=== PATIENT | female | born 1985 | race Two or more races ===

== ENCOUNTER 2024-09-06 12:06 | Emergency (ER) | payer MEDICAID, SELFPAY ==
[2024-09-06 12:07] VITALS: BMI 27.4
[2024-09-06 12:11] VITALS: BP 231/160; PULSE 117; RESP 18; TEMP 37; O2SAT 97
--- NOTE | 2024-09-06 12:11 | PC.NURSE ---
Pt BIB [facility]. Pt is agitated and refusing to be treated for hypertension.
--- NOTE | 2024-09-06 12:12 | PC.NURSE ---
Pt was cited out by [facility] deputy and walked out the ambulance by immediately after.
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
== END 2024-09-06 12:18 | disposition left against medical advice (07) ==
LOC: SERX 12:35
PROVIDERS: Emergency Provider Emergency Medicine
DX: R03.0 Elevated blood-pressure reading, without diagnosis of hypertension (principal); Z53.29 Procedure and treatment not carried out because of patient's decision for other reasons
CPT/HCPCS: 99281

== ENCOUNTER 2024-09-28 21:39 | Emergency (ER) | payer MEDICAID, SELFPAY ==
[2024-09-28 21:42] VITALS: BMI 29.9
[2024-09-28 22:19] VITALS: BP 201/111; PULSE 98; RESP 18; TEMP 36.6; O2SAT 98
[2024-09-28 22:29] VITALS: BP 208/138; PULSE 91
[2024-09-28] MEDS: hydrALAZINE HCL 25 MG TABLET PO (22:29)
[2024-09-28] MEDS: CLINDAMYCIN 150 MG CAPSULE 300 MG PO (22:29)
[2024-09-28] MEDS: ACETAMINOPHEN 500 MG TABLET 1000 MG PO (22:37)
--- NOTE | 2024-09-28 22:40 | PD.EDHEAD ---
ED Head Injury RME/HPI General Chief complaint: Extremity Injury, Lower Stated complaint: RT FOOT PAIN Time Seen by Provider: 09/28/24 22:22 Arrival date/time: 09/28/24 21:39 38F with no significant PMH Prese Related Data Previous Rx's ?Medication ?Instructions ?Recorded lisinopril 10 mg tablet 10 mg PO QDAY #90 tabs 01/23/23 clindamycin HCl 300 mg capsule 300 mg PO TID #21 caps 12/20/23 clindamycin HCl 300 mg capsule 300 mg PO TID #21 caps 12/23/23 clindamycin HCl 300 mg capsule 300 mg PO TID #21 caps 05/04/24 ibuprofen 800 mg tablet 800 mg PO TID PRN pain #30 tabs 05/04/24 nifedipine 60 mg tablet,extended 60 mg PO QDAY #30 tabs 05/04/24 release 24 hr (Procardia XL) clindamycin HCl 300 mg capsule 600 mg (2 x 300 mg) PO BID 10 days 09/28/24 #40 caps Allergies Allergy/AdvReac Type Severity Reaction Status Date / Time No Known Allergies Allergy Verified 09/28/24 21:45 Course Orders Category Date Time Status Acetaminophen Tab [Tylenol ES Tab] Med 09/28/24 22:34 Discontinued 1,000 mg PO X1 ONE Clindamycin [Cleocin] Med 09/28/24 22:23 Discontinued 300 mg PO X1 ONE hydrALAZINE HCL [Apresoline] Med 09/28/24 22:23 Discontinued 25 mg PO X1 ONE Vital Signs Vital signs: Vital Signs Temperature 98 F 09/28/24 22:19 Pulse Rate 98 09/28/24 22:19 Respiratory Rate 18 09/28/24 22:19 Blood Pressure 201/111 H 09/28/24 22:19 Pulse Oximetry (%) 98 09/28/24 22:19 Oxygen Delivery Method Room Air 09/28/24 22:19 Head Injury Medications / Prescriptions Medication administrations:: Medication Administration History Discontinued Medications Acetaminophen (Acetaminophen 500 Mg Tablet) 1,000 mg PO X1 ONE Stop: 09/28/24 22:35 Last Admin: 09/28/24 22:37 Dose: 1,000 mg Documented By: KG Clindamycin HCl (Clindamycin 150 Mg Capsule) 300 mg PO X1 ONE Stop: 09/28/24 22:24 Last Admin: 09/28/24 22:29 Dose: 300 mg Documented By: CHLOE Hydralazine HCl (Hydralazine Hcl 25 Mg Tablet) 25 mg PO X1 ONE Stop: 09/28/24 22:24 Last Admin: 09/28/24 22:29 Dose: 25 mg Documented By: CHLOE Discharge Plan Plan Patient Disposition: HOME (Self Care) Disposition Comment: Stable Prescriptions/Referrals Prescriptions/Med Rec: New clindamycin HCl 300 mg capsule 600 mg PO BID 10 Days Qty: 40 0RF No Action clindamycin HCl 300 mg capsule 300 mg PO TID Qty: 21 0RF clindamycin HCl 300 mg capsule 300 mg PO TID Qty: 21 0RF clindamycin HCl 300 mg capsule 300 mg PO TID Qty: 21 0RF ibuprofen 800 mg tablet 800 mg PO TID PRN (Reason: pain) Qty: 30 0RF nifedipine [Procardia XL] 60 mg tablet extended release 24hr 60 mg PO QDAY Qty: 30 0RF lisinopril 10 mg tablet 10 mg PO QDAY Qty: 90 0RF Problem List Clinical Impression: Hypertension, Cellulitis Patient/Caregiver Discharge Instructions Additional Instructions: Please follow-up with PCP within 24-48 hours and return immediately if symptoms worsen. Print Language: Nepali Stand Alone Forms: Patient Portal Info Letter HUSAM/BONITA Supervising Physician HUSAM/BONITA Supervising Physician: Dr. Ramirez
[2024-09-28 22:44] VITALS: BP 208/138; PULSE 91; RESP 18; O2SAT 95
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
== END 2024-09-28 22:40 | disposition home or self-care (01) ==
LOC: SERX 22:27
PROVIDERS: Emergency Provider Emergency Medicine; PCP Family Medicine
DX: L03.115 Cellulitis of right lower limb (principal); I10 Essential (primary) hypertension
CPT/HCPCS: 99282; A9270

== ENCOUNTER 2024-09-29 02:55 | Emergency (ER) | payer MEDICAID, SELFPAY ==
[2024-09-29 02:56] VITALS: BMI 29.8
[2024-09-29 03:04] VITALS: BP 201/137; PULSE 94; RESP 19; TEMP 36.6; O2SAT 100
--- NOTE | 2024-09-29 03:05 | XR_ITS ---
Examination: Foot, right, 3 views Technique: AP, oblique, lateral views foot, 3 views Date and time of exam: September 29, 2024 0309 hrs. Indications: Nonhealing foot wounds redness swelling and pain beginning one month ago. Findings: Mild osteopenia No fracture No cortical bone destruction No opaque foreign body There is soft tissue swelling dorsum of the foot Impression: No joseph cortical bone destruction
--- NOTE | 2024-09-29 03:05 | XR_ITS ---
EXAMINATION: Ankle, right 3 views . Technique: Ankle AP, oblique, lateral 3 views Date and time of exam: September 29, 2024 0309 hrs. Indications: Right ankle redness swelling and pain beginning one month ago, nonhealing wounds Findings: Soft tissue lateral malleolar swelling No fracture No cortical bone destruction Soft tissue defect adjacent to the distal shaft of the fibula on the oblique view Impression: No cortical bone destruction noted Consider MRI ankle without contrast follow-up
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
[2024-09-29 04:06] LABS: Basophils # (Auto) 0.1 Thou/mm3 (0.0-0.2); Basophils % (Auto) 0 % (0-2.5); Eosinophils # (Auto) 0.2 Thou/mm3 (0.0-0.5); Eosinophils % (Auto) 1 % (0-10); Hematocrit 38.1 % (36.0-46.0); Hemoglobin 12.6 g/dL (12.0-16.0); Immature Granulocytes % (Auto) 0 % (0-0); Immature Granulocytes Auto 0.04 Thou/mm3 (0.00-0.00); Lymphocytes % (Auto) 17 % (10-50); Mean Corpuscular HGB Conc 33.1 g/dl (31.0-37.0); Mean Corpuscular Hemoglobin 29.8 pg (25.0-35.0); Mean Corpuscular Volume 90 fL (80-100); Monocytes # (Auto) 0.7 Thou/mm3 (0.0-0.8); Monocytes % (Auto) 6 % (0-12); Neutrophils # (Auto) 8.7 Thou/mm3 (1.8-7.7); Neutrophils % (Auto) 75 % (37-80); Nucleated Red Blood Cell % 0 /100 WBC (0); Platelet Count 191 Thou/mm3 (140-440); RDW Standard Deviation 43.5 fL (36.4-46.3); Red Blood Count 4.23 Miln/mm3 (4.00-5.20); White Blood Count 11.6 Thou/mm3 (3.6-11.0)
[2024-09-29 04:19] LABS: Alanine Aminotransferase 12 U/L (10-49); Albumin, Serum 4.5 gm/dL (3.5-5.0); Albumin/Globulin Ratio 1.6 (1.2-2.2); Alkaline Phosphatase 123 U/L (46-116); Anion Gap 7 (7-16); Aspartate Amino Transferase 18 U/L (0-34); BUN/Creatinine Ratio 19 Ratio (12-20); Bilirubin,Total 0.8 mg/dL (0.3-1.2); Blood Urea Nitrogen 15 mg/dL (9-23); C-Reactive Protein 2.2 mg/dL (0.0-0.9); Calcium 9.7 mg/dL (8.3-10.6); Calcium (Corrected) 9.7 mg/dL (8.5-10.1); Carbon Dioxide 27.5 mMol/L (20.0-31.0); Chloride 101 mMol/L (98-107); Creatinine (Component) 0.8 mg/dL (0.6-1.3); Estimated Creatinine Clearance 104.1 mL/min (>60); Globulin 2.9 gm/dL (2.3-3.5); Glucose 94 mg/dL (74-106); Osmolality,Calculated 270 (275-295); Potassium 3.7 mMol/L (3.4-5.1); Sodium 135 mMol/L (136-145); Total Protein 7.4 gm/dL (5.7-8.2); eGFR > 60 See Note
[2024-09-29 04:57] LABS: Sed Rate (ESR) 54 mm/hr (0-20)
[2024-09-29] MEDS: KETOROLAC INJ 60 MG/2 ML VIAL IM (05:26)
[2024-09-29 07:05] VITALS: BP 208/143; BP 215/150; PULSE 85; RESP 16; TEMP 36.7; O2SAT 100
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
[2024-09-29] MEDS: ACETAMINOPHEN 325 MG TABLET 650 MG PO (07:44)
[2024-09-29] MEDS: HYDROcodone/APAP 10/325 TAB PO (07:44)
== END 2024-09-29 08:00 | disposition home or self-care (01) ==
PROVIDERS: Physician Assistant; Emergency Provider Emergency Medicine; PCP Family Medicine
DX: L03.115 Cellulitis of right lower limb (principal); I10 Essential (primary) hypertension; Z59.00 Homelessness unspecified
CPT/HCPCS: 36415; 73610; 73630; 80053; 85025; 85652; 86140; 96372; 99283; J1885; A9270

== ENCOUNTER 2024-10-03 00:12 | Emergency (ER) | payer MEDICAID, SELFPAY ==
[2024-10-03 00:18] VITALS: BP 206/141; PULSE 109; RESP 18; TEMP 36.7; O2SAT 98
[2024-10-03 00:44] VITALS: PULSE 110; RESP 20; O2SAT 97
--- NOTE | 2024-10-03 01:47 | EDNOTE_ITS ---
<Statement entered by Nadia Rosales MD - 10/03/24 05:44> As co-signing physician, I was present and available for consult prn. I concur with the plan and care as documented by the midlevel provider. ED Skin Abcess FB-RME/HPI General Chief complaint: Skin/Abscess/Foreign Body Stated complaint: rt foot swelling Time Seen by Provider: 10/03/24 01:36 Arrival date/time: 10/03/24 00:12 38F with history of HTN and meth use presents to ED with RLE pain and swelling. Patient has been here multiples times for this. Patient's last visit several days ago had benign bloodwork and XR. Patient is back today because when she pulled her sock off, part of the scab on one of the wounds got caught and ripped, which is why patient has worsening pain. Limitations: no limitations Related Data Previous Rx's ?Medication ?Instructions ?Recorded lisinopril 10 mg tablet 10 mg PO QDAY #90 tabs 01/23/23 clindamycin HCl 300 mg capsule 300 mg PO TID #21 caps 12/20/23 clindamycin HCl 300 mg capsule 300 mg PO TID #21 caps 12/23/23 clindamycin HCl 300 mg capsule 300 mg PO TID #21 caps 05/04/24 ibuprofen 800 mg tablet 800 mg PO TID PRN pain #30 tabs 05/04/24 nifedipine 60 mg tablet,extended 60 mg PO QDAY #30 tabs 05/04/24 release 24 hr (Procardia XL) clindamycin HCl 300 mg capsule 600 mg (2 x 300 mg) PO BID 10 days 09/28/24 #40 caps acetaminophen 500 mg tablet 1,000 mg (2 x 500 mg) PO Q6H PRN 09/29/24 pain #30 tabs ibuprofen 600 mg tablet 600 mg PO Q6H PRN pain #30 tabs 09/29/24 Allergies Allergy/AdvReac Type Severity Reaction Status Date / Time No Known Allergies Allergy Verified 09/29/24 02:58 Review of Systems Review of Systems Systems Reviewed: All systems reviewed, normal except as documented Constitutional Constitutional: Reports system reviewed and no additional complaints, except as documented, Denies fever(s) and Denies headache(s) ENT Ears, Nose, Mouth, and Throat: Denies disequilibrium and Denies headache(s) Cardiovascular Cardiovascular: Reports system reviewed and no additional complaints, except as documented, Denies chest pain and Denies dyspnea Respiratory Respiratory: Reports system reviewed and no additional complaints, except as documented, Denies cough and Denies dyspnea Gastrointestinal Gastrointestinal: Reports system reviewed and no additional complaints, except as documented, Denies abdominal pain, Denies nausea and Denies vomiting Integumentary/Breasts Skin/Breast: Reports as per HPI and Reports skin pain Neurologic Neurologic: Reports system reviewed and no additional complaints, except as documented, Denies confusion, Denies disequilibrium and Denies headache(s) Psychiatric Psychiatric: Denies confusion Past Medical History Past Medical History CARDIAC: Positive Cardiac Disorders and Hypertension; Negative Congestive Heart Failure RESPIRATORY: Negative Chronic Obstructive Pulmonary Disease (COPD) GENITOURINARY: Negative Renal Disease ENDOCRINE: Negative Diabetes Mellitus Type 1 or Diabetes Mellitus Type 2 Social History SMOKING STATUS: Former smoker ED Exam General Limitations: Present no limitations General appearance: Present alert and in no apparent distress Head Head exam: Present atraumatic Eye Eye exam: Present normal appearance, PERRL and EOMI ENT ENT exam: Present normal exam, normal oropharynx and mucous membranes moist Neck Neck exam: Present normal inspection, full ROM and trachea midline Chest Chest inspection: Present normal inspection and symmetric chest wall rise Respiratory Respiratory exam: Present normal lung sounds bilaterally Cardiovascular Cardiovascular exam: Present regular rate, normal rhythm and normal heart sounds Abdominal Exam Abdominal exam: Present soft and normal bowel sounds Extremities Exam Extremities exam: Present full ROM Expanded Lower Extremity Exam Ankle exam: Present full ROM (R), tenderness and swelling Back Exam Back exam: Present normal inspection and full ROM Neurological Exam Neurological exam: Present alert, oriented X3 and CN II-XII intact Psychiatric Psychiatric exam: Present normal affect and normal mood Skin Skin exam: Present warm, dry, intact and normal color Course Quality Measures none Orders Category Date Time Status Dexamethasone Inj [Decadron Inj] Med 10/03/24 01:37 Discontinued 10 mg PO X1 ONE HYDROcodone*/APAP 5/325 [[place] 5/325] Med 10/03/24 01:37 Discontinued 1 tab PO X1 ONE Vital Signs Vital signs: Vital Signs Temperature 98.1 F 10/03/24 00:18 Pulse Rate 109 H 10/03/24 00:18 Respiratory Rate 18 10/03/24 00:18 Blood Pressure 206/141 H 10/03/24 00:18 Pulse Oximetry (%) 98 10/03/24 00:18 Oxygen Delivery Method Room Air 10/03/24 00:18 O2 at 98% on RA and WNLs Skin / Abscess / Foreign Body MDM Narrative MDM Narrative:: 38F with history of HTN and meth use presents to ED with RLE pain and swelling. Patient has been here multiples times for this. Patient's last visit several days ago had benign bloodwork and XR. Patient is back today because when she pulled her sock off, part of the scab on one of the wounds got caught and ripped, which is why patient has worsening pain. Physical exam reveals some R posterior ankle swelling, redness, and tenderness with healing scab hunter; improved from last visit as there was an open wet wound. Patient is afebrile, calm and alert. Wound cleaned and rebandaged. Counseled to finish ABX. BP noted to be elevated, but it always is. Counseled to see PCP about HTN control. Patient data External records reviewed:: [facility] previous records Clinical information provided by:: patient Social determinants that could affect healthcare access:: substance use Patient has the following chronic illnesses:: HTN and drug use How is presenting disease/condition affected by chronic disease/condition?: caused by Evaluation data The following diagnostics were reviewed and interpreted by me:: other (specify) (none) Lab and/or radiology exams considered but not ordered:: not ordered Interpretation Summary: n/a Medications / Prescriptions Medications or Prescriptions considered but not ordered:: ordered Medication administrations:: Medication Administration History Discontinued Medications Hydrocodone Bitart/Acetaminophen (Hydrocodone/Apap 5/325 Tablet) 1 tab PO X1 ONE Stop: 10/03/24 01:38 Dexamethasone Sodium Phosphate (Dexamethasone Sod Phos Inj 10 Mg/Ml Vial) 10 mg PO X1 ONE Stop: 10/03/24 01:38 above Consultations Consultation(s) initiated? (list below): No Diagnosis Skin/Abscess Differential Diagnosis: abscess of skin or subcutaneous tissue, viral exanthem, dermatophytosis, urticaria, herpes zoster, allergic reaction to drug, cellulitis, eczema, insect bites, impetigo and contact dermatitis Most likely diagnosis given after review of the tests above:: cellulitis Admission Indicated Admission indicated?: not indicated Admission Request Was there a request for admission?: No Disposition Plan Disposition Plan: Discharge Discharge Attestation Discharge Attestation: The patient and all family members were given an opportunity to ask questions and understood the discharge instructions. Discharge instructions specifically effects, indications for sooner follow up or return to the emergency department, and the expected course of current diagnosis. Patient condition: Stable Discharge Plan Plan Patient Disposition: HOME (Self Care) Disposition Comment: Stable Prescriptions/Referrals Prescriptions/Med Rec: No Action clindamycin HCl 300 mg capsule 300 mg PO TID Qty: 21 0RF clindamycin HCl 300 mg capsule 300 mg PO TID Qty: 21 0RF clindamycin HCl 300 mg capsule 300 mg PO TID Qty: 21 0RF ibuprofen 800 mg tablet 800 mg PO TID PRN (Reason: pain) Qty: 30 0RF nifedipine [Procardia XL] 60 mg tablet extended release 24hr 60 mg PO QDAY Qty: 30 0RF ibuprofen 600 mg tablet 600 mg PO Q6H PRN (Reason: pain) Qty: 30 0RF acetaminophen 500 mg tablet 1,000 mg PO Q6H PRN (Reason: pain) Qty: 30 0RF lisinopril 10 mg tablet 10 mg PO QDAY Qty: 90 0RF clindamycin HCl 300 mg capsule 600 mg PO BID 10 Days Qty: 40 0RF Problem List Clinical Impression: Cellulitis Patient/Caregiver Discharge Instructions Additional Instructions: Please follow-up with PCP within 24-48 hours and return immediately if symptoms worsen. Finish ABX. Print Language: Thai Stand Alone Forms: Patient Portal Info Letter HUSAM/BONITA Supervising Physician HUSAM/BONITA Supervising Physician: Dr. Rosales
[2024-10-03] MEDS: HYDROcodone/APAP 5/325 TABLET 1 TAB PO (02:14)
[2024-10-03] MEDS: DEXAMETHASONE SOD PHOS INJ 10 MG/ML VIAL PO (02:15)
[2024-10-03 02:16] VITALS: BP 198/101; PULSE 99; RESP 19; TEMP 37.2
== END 2024-10-03 02:16 | disposition home or self-care (01) ==
LOC: SERX 04:20
PROVIDERS: Emergency Provider Emergency Medicine; PCP Family Medicine
DX: L03.115 Cellulitis of right lower limb (principal)
CPT/HCPCS: 99283; J1100; A9270

== ENCOUNTER 2024-10-16 20:58 | Emergency (ER) | payer MEDICAID, SELFPAY ==
[2024-10-16 20:58] VITALS: BMI 29.7
[2024-10-16 21:06] VITALS: BP 189/130; PULSE 89; RESP 17; TEMP 37; O2SAT 98
--- NOTE | 2024-10-16 21:31 | EDNOTE_ITS ---
ED Skin Abcess FB-RME/HPI General Chief complaint: Ankle/Foot Injury Stated complaint: RIGHT ANKLE PAIN Time Seen by Provider: 10/16/24 21:20 Arrival date/time: 10/16/24 20:58 38F with history of HTN and meth use presents to ED with RLE pain and swelling. Patient has been here multiples times for this. Patient's recent visit had benign blood work and XR. Patient is back because she states she finished her clindamycin ABX and the swelling is back. Limitations: no limitations Related Data Previous Rx's ?Medication ?Instructions ?Recorded lisinopril 10 mg tablet 10 mg PO QDAY #90 tabs 01/23/23 clindamycin HCl 300 mg capsule 300 mg PO TID #21 caps 12/20/23 clindamycin HCl 300 mg capsule 300 mg PO TID #21 caps 12/23/23 clindamycin HCl 300 mg capsule 300 mg PO TID #21 caps 05/04/24 ibuprofen 800 mg tablet 800 mg PO TID PRN pain #30 tabs 05/04/24 nifedipine 60 mg tablet,extended 60 mg PO QDAY #30 tabs 05/04/24 release 24 hr (Procardia XL) acetaminophen 500 mg tablet 1,000 mg (2 x 500 mg) PO Q6H PRN 09/29/24 pain #30 tabs ibuprofen 600 mg tablet 600 mg PO Q6H PRN pain #30 tabs 09/29/24 doxycycline hyclate 100 mg tablet 100 mg PO BID 14 days #28 tabs 10/16/24 Allergies Allergy/AdvReac Type Severity Reaction Status Date / Time No Known Allergies Allergy Verified 09/29/24 02:58 Review of Systems Review of Systems Systems Reviewed: All systems reviewed, normal except as documented Constitutional Constitutional: Reports system reviewed and no additional complaints, except as documented, Denies fever(s) and Denies headache(s) ENT Ears, Nose, Mouth, and Throat: Denies disequilibrium and Denies headache(s) Cardiovascular Cardiovascular: Reports system reviewed and no additional complaints, except as documented, Denies chest pain and Denies dyspnea Respiratory Respiratory: Reports system reviewed and no additional complaints, except as documented, Denies cough and Denies dyspnea Gastrointestinal Gastrointestinal: Reports system reviewed and no additional complaints, except as documented, Denies abdominal pain, Denies nausea and Denies vomiting Integumentary/Breasts Skin/Breast: Reports as per HPI and Reports skin pain Neurologic Neurologic: Reports system reviewed and no additional complaints, except as documented, Denies confusion, Denies disequilibrium and Denies headache(s) Psychiatric Psychiatric: Denies confusion Past Medical History Past Medical History CARDIAC: Positive Cardiac Disorders and Hypertension; Negative Congestive Heart Failure RESPIRATORY: Negative Chronic Obstructive Pulmonary Disease (COPD) GENITOURINARY: Negative Renal Disease ENDOCRINE: Negative Diabetes Mellitus Type 1 or Diabetes Mellitus Type 2 Social History SMOKING STATUS: Never smoker ED Exam General Limitations: Present no limitations General appearance: Present alert and in no apparent distress Head Head exam: Present atraumatic Eye Eye exam: Present normal appearance, PERRL and EOMI ENT ENT exam: Present normal exam, normal oropharynx and mucous membranes moist Neck Neck exam: Present normal inspection, full ROM and trachea midline Chest Chest inspection: Present normal inspection and symmetric chest wall rise Respiratory Respiratory exam: Present normal lung sounds bilaterally Cardiovascular Cardiovascular exam: Present regular rate, normal rhythm and normal heart sounds Abdominal Exam Abdominal exam: Present soft and normal bowel sounds Extremities Exam Extremities exam: Present full ROM Expanded Lower Extremity Exam Ankle exam: Present full ROM (R), swelling and other (R open wound but healing) Back Exam Back exam: Present normal inspection and full ROM Neurological Exam Neurological exam: Present alert, oriented X3 and CN II-XII intact Psychiatric Psychiatric exam: Present normal affect and normal mood Skin Skin exam: Present warm, dry, intact and normal color Course Quality Measures none Orders Category Date Time Status Wound Care NOW Care 10/16/24 21:23 Completed Doxycycline [Vibramycin] Med 10/16/24 21:27 Discontinued 100 mg PO X1 ONE Naproxen [Naprosyn] Med 10/16/24 21:21 Discontinued 500 mg PO X1 ONE Trimethoprim/Sulfa 160/800 Ds [Bactrim Ds] Med 10/16/24 21:21 Discontinued 1 tab PO X1 ONE Vital Signs Vital signs: Vital Signs Temperature 98.6 F 10/16/24 21:06 Pulse Rate 89 10/16/24 21:06 Respiratory Rate 17 10/16/24 21:06 Blood Pressure 189/130 H 10/16/24 21:06 Pulse Oximetry (%) 98 10/16/24 21:06 Oxygen Delivery Method Room Air 10/16/24 21:06 O2 at 98% on RA and WNLs Skin / Abscess / Foreign Body MDM Narrative MDM Narrative:: 38F with history of HTN and meth use presents to ED with RLE pain and swelling. Patient has been here multiples times for this. Patient's recent visit had benign blood work and XR. Patient is back because she states she finished her clindamycin ABX and the swelling is back. Physical exam reveals some R ankle swelling with healing scab hunter; improved from last visit as there was an open wet wound. Patient is afebrile, calm and alert. Wound cleaned and rebandaged. Will try different ABX. BP noted to be elevated, but it always is. Counseled to see PCP about HTN control. Patient data External records reviewed:: [facility] previous records Clinical information provided by:: patient Social determinants that could affect healthcare access:: substance use Patient has the following chronic illnesses:: drug use and HTN How is presenting disease/condition affected by chronic disease/condition?: exacerbated by Evaluation data The following diagnostics were reviewed and interpreted by me:: other (specify) (none) Lab and/or radiology exams considered but not ordered:: not ordered Interpretation Summary: n/a Medications / Prescriptions Medications or Prescriptions considered but not ordered:: ordered Medication administrations:: Medication Administration History Discontinued Medications Doxycycline Hyclate (Doxycycline 100 Mg Tablet) 100 mg PO X1 ONE Stop: 10/16/24 21:28 Last Admin: 10/16/24 21:39 Dose: 100 mg Documented By: Naproxen (Naproxen 250 Mg Tablet) 500 mg PO X1 ONE Stop: 10/16/24 21:22 Last Admin: 10/16/24 21:38 Dose: 500 mg Documented By: Trimethoprim/Sulfamethoxazole (Trimethoprim/Sulfa 160/800 Ds Tablet) 1 tab PO X1 ONE Stop: 10/16/24 21:22 Last Admin: 10/16/24 21:40 Dose: Not Given Documented By: Non-Admin Reason: Cancelled by Provider above Consultations Consultation(s) initiated? (list below): No Diagnosis Skin/Abscess Differential Diagnosis: abscess of skin or subcutaneous tissue, viral exanthem, dermatophytosis, urticaria, herpes zoster, allergic reaction to drug, cellulitis, eczema, insect bites, impetigo and contact dermatitis Most likely diagnosis given after review of the tests above:: cellulitis Admission Indicated Admission indicated?: not indicated Admission Request Was there a request for admission?: No Disposition Plan Disposition Plan: Discharge Discharge Attestation Discharge Attestation: The patient and all family members were given an opportunity to ask questions and understood the discharge instructions. Discharge instructions specifically effects, indications for sooner follow up or return to the emergency department, and the expected course of current diagnosis. Patient condition: Stable Discharge Plan Plan Patient Disposition: HOME (Self Care) Disposition Comment: Stable Prescriptions/Referrals Prescriptions/Med Rec: New doxycycline hyclate 100 mg tablet 100 mg PO BID 14 Days Qty: 28 0RF No Action clindamycin HCl 300 mg capsule 300 mg PO TID Qty: 21 0RF clindamycin HCl 300 mg capsule 300 mg PO TID Qty: 21 0RF clindamycin HCl 300 mg capsule 300 mg PO TID Qty: 21 0RF ibuprofen 800 mg tablet 800 mg PO TID PRN (Reason: pain) Qty: 30 0RF nifedipine [Procardia XL] 60 mg tablet extended release 24hr 60 mg PO QDAY Qty: 30 0RF ibuprofen 600 mg tablet 600 mg PO Q6H PRN (Reason: pain) Qty: 30 0RF acetaminophen 500 mg tablet 1,000 mg PO Q6H PRN (Reason: pain) Qty: 30 0RF lisinopril 10 mg tablet 10 mg PO QDAY Qty: 90 0RF Problem List Clinical Impression: Cellulitis Patient/Caregiver Discharge Instructions Education Materials: ED Cellulitis Additional Instructions: Please follow-up with PCP within 24-48 hours and return immediately if symptoms worsen. Can call [facility] . May need PCP referral. Print Language: Gabonese Stand Alone Forms: Patient Portal Info Letter HUSAM/BONITA Supervising Physician JEAN MARIE Supervising Physician: Dr. Ahn
[2024-10-16] MEDS: NAPROXEN 250 MG TABLET 500 MG PO (21:38)
[2024-10-16] MEDS: DOXYCYCLINE 100 MG TABLET PO (21:39)
== END 2024-10-16 23:11 | disposition home or self-care (01) ==
LOC: SERX 21:49
PROVIDERS: Emergency Provider Emergency Medicine
DX: L03.115 Cellulitis of right lower limb (principal); I10 Essential (primary) hypertension
CPT/HCPCS: 99282; A9270

== ENCOUNTER 2025-01-13 19:21 | Emergency (ER) | payer MEDICAID, SELFPAY ==
[2025-01-13 19:22] VITALS: BMI 33.2
[2025-01-13 19:57] VITALS: BP 168/98; PULSE 87; RESP 18; TEMP 36.4; O2SAT 96
--- NOTE | 2025-01-13 20:37 | PD.EDDENTL ---
ED Dental RME/HPI General Chief complaint: Dental/Oral/Throat Stated complaint: TOOTHACHE, LEFT EAR PAIN Time Seen by Provider: 01/13/25 19:24 Arrival date/time: 01/13/25 19:21 Limitations: no limitations RME / HPI RME / HPI Narrative: 39-year-old female presents with left lower tooth pain x 3 days. She describes it as sharp with radiation of pain to her left ear. Denies fever, chills, vomiting, rash, otorrhea, chest pain, shortness of breath. Patient has a known old fracture to one of her back left molars. She reports dental appointment next week. She reports she took 800 mg x 4 hours prior to arrival to ED of ibuprofen with minimal improvement in symptoms. Teeth map:  1. Fracture with dentin exposure. Duration: constant Exacerbating factors: chewing, cold and drinking fluids Context: history of dental caries Treatment prior to arrival: oral analgesic Related Data Previous Rx's ?Medication ?Instructions ?Recorded lisinopril 10 mg tablet 10 mg PO QDAY #90 tabs 01/23/23 clindamycin HCl 300 mg capsule 300 mg PO TID #21 caps 12/20/23 clindamycin HCl 300 mg capsule 300 mg PO TID #21 caps 12/23/23 clindamycin HCl 300 mg capsule 300 mg PO TID #21 caps 05/04/24 ibuprofen 800 mg tablet 800 mg PO TID PRN pain #30 tabs 05/04/24 nifedipine 60 mg tablet,extended 60 mg PO QDAY #30 tabs 05/04/24 release 24 hr (Procardia XL) acetaminophen 500 mg tablet 1,000 mg (2 x 500 mg) PO Q6H PRN 09/29/24 pain #30 tabs ibuprofen 600 mg tablet 600 mg PO Q6H PRN pain #30 tabs 09/29/24 amoxicillin 500 mg-potassium 1 tab PO BID dental infection 10 01/13/25 clavulanate 125 mg tablet days #20 tabs (Augmentin) lidocaine HCl 2 % mucosal solution 15 ml PO .PO dental pain #100 mL 01/13/25 (Lidocaine Viscous) Allergies Allergy/AdvReac Type Severity Reaction Status Date / Time No Known Allergies Allergy Verified 01/13/25 19:22 Review of Systems Constitutional Constitutional: Denies chills, Denies fever(s) and Denies headache(s) ENT Ears, Nose, Mouth, and Throat: Denies bleeding gums, Reports dental pain (Left lower molars.), Denies dysphagia, Denies ear discharge, Reports otalgia, Denies facial pain, Denies headache(s), Denies neck pain and Denies odynophagia Cardiovascular Cardiovascular: Denies chest pain and Denies dyspnea Respiratory Respiratory: Denies cough and Denies dyspnea Gastrointestinal Gastrointestinal: Denies dysphagia and Denies odynophagia Musculoskeletal Musculoskeletal: Denies back pain and Denies neck pain Integumentary/Breasts Skin/Breast: Denies rash Neurologic Neurologic: Denies headache(s) Past Medical History Past Medical History CARDIAC: Positive Cardiac Disorders and Hypertension; Negative Congestive Heart Failure RESPIRATORY: Negative Chronic Obstructive Pulmonary Disease (COPD) GENITOURINARY: Negative Renal Disease ENDOCRINE: Negative Diabetes Mellitus Type 1 or Diabetes Mellitus Type 2 Social History SMOKING STATUS: Never smoker ED Exam General Limitations: Present no limitations General appearance: Present alert and in distress Head Head exam: Present atraumatic Eye Eye exam: Present normal appearance and EOMI Expanded ENT Exam Teeth exam: Present dental caries, fractured tooth # (19), dental tenderness # (Left lower, diffuse.) and gingival swelling Throat exam: Present normal inspection; Absent tonsillar erythema, tonsillar exudate or muffled voice Neck Neck exam: Present normal inspection and full ROM; Absent tenderness or lymphadenopathy Chest Chest inspection: Present normal inspection and symmetric chest wall rise Respiratory Respiratory exam: Present normal lung sounds bilaterally; Absent respiratory distress, wheezes or stridor Cardiovascular Cardiovascular exam: Present regular rate and +S1 Abdominal Exam Abdominal exam: Present soft; Absent distention Extremities Exam Extremities exam: Present normal inspection and full ROM Back Exam Back exam: Present normal inspection and full ROM Neurological Exam Neurological exam: Present alert and normal gait Psychiatric Psychiatric exam: Present normal affect Skin Skin exam: Present warm and dry Course Quality Measures none Orders Category Date Time Status Amoxicillin/Pot Clav 875 [Augmentin 875] Med 01/13/25 20:12 Discontinued 1 tab PO X1 ONE HYDROcodone*/APAP 5/325 [[place] 5/325] Med 01/13/25 20:12 Discontinued 1 tab PO X1 ONE Lidocaine 2% Viscous [Xylocaine 2% Viscous] Med 01/13/25 20:12 Discontinued 15 ml PO X1 ONE Vital Signs Vital signs: Vital Signs Temperature 97.5 F 01/13/25 19:57 Pulse Rate 87 01/13/25 19:57 Respiratory Rate 18 01/13/25 19:57 Blood Pressure 168/98 H 01/13/25 19:57 Pulse Oximetry (%) 96 01/13/25 19:57 Oxygen Delivery Method Room Air 01/13/25 19:57 Pulse ox 96% on room air, within normal limits. Dental / Oral MDM Narrative MDM Narrative:: 39-year-old female presented with left lower molar pain for the last several days. Vital signs stable. Physical exam significant for fracture at base of tooth #19 with surrounding gingival erythema. Patient's pain was treated with viscous lidocaine and oral analgesics with some improvement in symptoms. Less concern for gingival abscess at this time, however we will start her on prophylactic antibiotic. Patient reports that she has an appointment to follow-up with dentist for definite management and will call to have appointment pushed up to tomorrow. Ultimately patient was discharged home with plan to follow-up with dentist tomorrow. Return precautions were provided. Patient was stable at time of discharge. Patient data External records reviewed:: [facility] previous records Clinical information provided by:: patient Social determinants that could affect healthcare access:: substance use Patient has the following chronic illnesses:: History of methamphetamine use. How is presenting disease/condition affected by chronic disease/condition?: exacerbated by Evaluation data The following diagnostics were reviewed and interpreted by me:: other (specify) Lab and/or radiology exams considered but not ordered:: Considered not ordered. Interpretation Summary: Considered not ordered. Medications / Prescriptions Medications or Prescriptions considered but not ordered:: Rx given. Medication administrations:: Medication Administration History Discontinued Medications Hydrocodone Bitart/Acetaminophen (Hydrocodone/Apap 5/325 Tablet) 1 tab PO X1 ONE Stop: 01/13/25 20:13 Last Admin: 01/13/25 21:16 Dose: 1 tab Documented By: JARRED Amoxicillin/Clavulanate Potassium (Amoxicillin/Pot Clav 875 Tablet) 1 tab PO X1 ONE Stop: 01/13/25 20:13 Last Admin: 01/13/25 21:16 Dose: 1 tab Documented By: JARRED Lidocaine HCl (Lidocaine Viscous 2% 15 Ml Udc) 15 ml PO X1 ONE Stop: 01/13/25 20:13 Last Admin: 01/13/25 21:17 Dose: 15 ml Documented By: JARRED Rx given. Consultations Consultation(s) initiated? (list below): No Diagnosis Dental Differential Diagnosis: gingival abscess, dental caries, toothache, dental abscess and fracture of tooth Most likely diagnosis given after review of the tests above:: Fracture of tooth. Admission Indicated Admission indicated?: not indicated Admission Request Was there a request for admission?: No Disposition Plan Disposition Plan: Discharge Discharge Attestation Discharge Attestation: The patient and all family members were given an opportunity to ask questions and understood the discharge instructions. Discharge instructions specifically effects, indications for sooner follow up or return to the emergency department, and the expected course of current diagnosis. Patient condition: Stable Discharge Plan Plan Patient Disposition: HOME (Self Care) Disposition Comment: stable Prescriptions/Referrals Prescriptions/Med Rec: New amoxicillin-pot clavulanate [Augmentin] 500-125 mg tablet 1 tab PO BID 10 Days Qty: 20 0RF lidocaine HCl [Lidocaine Viscous] 2 % solution 15 ml PO .PO Qty: 100 0RF No Action clindamycin HCl 300 mg capsule 300 mg PO TID Qty: 21 0RF clindamycin HCl 300 mg capsule 300 mg PO TID Qty: 21 0RF clindamycin HCl 300 mg capsule 300 mg PO TID Qty: 21 0RF ibuprofen 800 mg tablet 800 mg PO TID PRN (Reason: pain) Qty: 30 0RF nifedipine [Procardia XL] 60 mg tablet extended release 24hr 60 mg PO QDAY Qty: 30 0RF ibuprofen 600 mg tablet 600 mg PO Q6H PRN (Reason: pain) Qty: 30 0RF acetaminophen 500 mg tablet 1,000 mg PO Q6H PRN (Reason: pain) Qty: 30 0RF lisinopril 10 mg tablet 10 mg PO QDAY Qty: 90 0RF Problem List Clinical Impression: Tooth avulsion, Fracture of tooth Patient/Caregiver Discharge Instructions Other Activity Instructions:: Follow-up with dentist within the next 24 to 48 hours for further evaluation and treatment of dental fracture. Take Tylenol or ibuprofen as needed for pain every 6 hours. Take Augmentin twice daily for the next 10 days. Return to the ED if your symptoms worsen or change. Education Materials: ED Dental Trauma Print Language: Hungarian Stand Alone Forms: Reva Award Info., Patient Portal Info Letter PA/SPLUNK ARCHITECT Supervising Physician PA/SPLUNK ARCHITECT Supervising Physician: Dr. Ahn
[2025-01-13] MEDS: HYDROcodone/APAP 5/325 TABLET 1 TAB PO (21:16)
[2025-01-13] MEDS: AMOXICILLIN/POT CLAV 875 TABLET 1 TAB PO (21:16)
[2025-01-13] MEDS: LIDOCAINE VISCOUS 2% 15 ML UDC PO (21:17)
== END 2025-01-13 21:35 | disposition home or self-care (01) ==
LOC: SERX 21:02
PROVIDERS: Emergency Provider Emergency Medicine
DX: S03.2XXA Dislocation of tooth, initial encounter (principal); S02.5XXA Fracture of tooth (traumatic), initial encounter for closed fracture; X58.XXXA Exposure to other specified factors, initial encounter
CPT/HCPCS: 99283; J3490; A9270

== ENCOUNTER 2025-02-21 19:14 | Emergency (ER) | payer MEDICAID, SELFPAY ==
[2025-02-21] VITALS (9 sets, daily range): BP systolic 164–201; BP diastolic 100–130; PULSE 61–73; RESP 12–16; TEMP 36.7–36.9; O2SAT 98–100; BMI 33.0
--- NOTE | 2025-02-21 20:19 | PD.EDSOB ---
ED SOB =RME/HPI General Chief Complaint: Shortness of Breath/Dyspnea Stated Complaint: SOB Time Seen by Provider: 02/21/25 19:18 Arrival date/time: 02/21/25 19:14 RME / HPI RME / HPI Narrative: DR. ROSALES MAIN ED EVALUATION: 39 y/o female [place] Hx of Hypertension FABRICE presents to ED c/o nose bleed, shortness of breath, and tightening chest and arm pain x 1 day. Per EMS, patient's breathing improved s/p breathing treatment en route. Patient denies any drug use since September 2024. Admits she has not taken her Lisinopril and possible Amlodipine in approximately 2 weeks. Patient also denies cough, nausea, vomiting, diarrhea, constipation, extremity swelling or any other associated symptoms or aggravating factors. No modifying factors, no radiation, no migration. Related Data Previous Rx's ?Medication ?Instructions ?Recorded lisinopril 10 mg tablet 10 mg PO QDAY #90 tabs 01/23/23 clindamycin HCl 300 mg capsule 300 mg PO TID #21 caps 12/20/23 clindamycin HCl 300 mg capsule 300 mg PO TID #21 caps 12/23/23 clindamycin HCl 300 mg capsule 300 mg PO TID #21 caps 05/04/24 ibuprofen 800 mg tablet 800 mg PO TID PRN pain #30 tabs 05/04/24 nifedipine 60 mg tablet,extended 60 mg PO QDAY #30 tabs 05/04/24 release 24 hr (Procardia XL) acetaminophen 500 mg tablet 1,000 mg (2 x 500 mg) PO Q6H PRN 09/29/24 pain #30 tabs ibuprofen 600 mg tablet 600 mg PO Q6H PRN pain #30 tabs 09/29/24 lidocaine HCl 2 % mucosal solution 15 ml PO .PO dental pain #100 mL 01/13/25 (Lidocaine Viscous) lidocaine HCl 2 % mucosal solution See Rx Instructions .Route 01/14/25 (Lidocaine Viscous) .COMPLEX #60 mL lidocaine HCl 2 % mucosal solution See Rx Instructions .Route 01/15/25 (Lidocaine Viscous) .COMPLEX #100 mL Allergies Allergy/AdvReac Type Severity Reaction Status Date / Time No Known Allergies Allergy Verified 02/21/25 19:42 Review of Systems Review of Systems Systems Reviewed: All systems reviewed, normal except as documented Narrative Review of Systems: Gen: No fever, no chills, no weight loss EYES: No discharge, no visual changes, no pain HEENT: No ear pain, no congestion, no sore throat PULM: Positive shortness of breath, no cough, no congestion CV: Positive chest pain, no dyspnea on exertion, no palpitations GI: No nausea, no vomiting, no diarrhea, no pain, no constipation : No frequency, no urgency, no dysuria Musc/skel: No joint pain, no back pain, no swelling Skin: No rash. Psyc: No hallucinations, no depression Heme/Lymph: No easy bleeding or bruising tendencies Neuro: No weakness, no headache Past Medical History Past Medical History CARDIAC: Positive Cardiac Disorders and Hypertension ED Exam Narrative Physical exam: GENERAL APPEARANCE: alert and oriented x 4, well-developed, well-nourished, hyperventilating, appears agitated. VITALS: All vitals were reviewed and the pulse ox is 99% on room air, which is normal according to my interpretation. HEENT: Normocephalic, atraumatic; pupils equal, round, reactive to light; EOMI; mucous membranes pink, moist; oropharynx clear NECK: Supple LUNGS: CTABL; no wheezes, no rales, no rhonchi HEART: Regular rate, regular rhythm; normal S1, S2; no murmurs ABDOMEN: non distended; normal BS; soft, no tenderness, no guarding, no rebound; no masses, no organomegaly, no hernia PELVIC: No lesions, swelling, unusual discharge, or FB. BACK: no CVA tenderness EXTREMITIES: atraumatic; no edema NEUROLOGIC: awake; alert and oriented x4; cranial nerves II-XII grossly intact; no focal sensory or motor deficits PSYCHIATRIC: anxious. SKIN: warm, dry, normal color; no rashes Course Course Course Narrative: 1946: EKG ordered. 2036: Labs ordered. 2057: COVID-19 Antigen test ordered. 2224: UA and drug screen ordered. 2252: Bedside blood glucose ordered. 2257: Troponin I ordered. 2258: Toradol ordered. 3: Labs reviewed. HCG is negative. 3: Pelvic exam performed with school curriculum developer. Exam is unremarkable. Quality Measures none Orders Category Date Time Status Bedside Blood Glucose NOW Care 02/21/25 22:53 Completed Bedside COVID-19 Antigen Test NOW Care 02/21/25 20:58 Completed Bedside Influenza A&B Antigen Test NOW Care 02/21/25 20:58 Completed Training Development Manager NOW Care 02/21/25 20:18 Completed EKG (ED ONLY) *Do not use* NOW Care 02/21/25 19:47 Completed IV [Insert IV] NOW Care 02/21/25 20:15 Completed EKG (ED Only) Stat Exams 02/21/25 19:47 Ordered XR chest 1V portable Stat Exams 02/21/25 20:18 Completed Alcohol, Blood Medical Stat Lab 02/21/25 20:37 Completed B-Type Natriuretic Peptide Stat Lab 02/21/25 20:37 Completed CBC Stat Lab 02/21/25 20:37 Completed Comprehensive Metabolic Panel Stat Lab 02/21/25 20:37 Completed Drug Screen,Urine Stat Lab 02/21/25 22:25 Completed HCG,Qualitative Serum Stat Lab 02/22/25 01:06 Completed Lactic Acid [Lactate (Lactic Acid)] Stat Lab 02/22/25 01:06 Completed Lipase Stat Lab 02/21/25 20:37 Completed Magnesium Stat Lab 02/21/25 20:37 Completed Partial Thromboplastin Time Stat Lab 02/21/25 20:37 Completed Procalcitonin Stat Lab 02/22/25 01:06 Completed Prothrombin Time with INR Stat Lab 02/21/25 20:37 Completed TSH [Thyroid Stimulating Hormone] Stat Lab 02/22/25 02:13 Completed Troponin I Stat Lab 02/21/25 20:37 Completed Troponin I Stat Lab 02/21/25 23:00 Completed UA, C/S IF [Urinalysis, C/S if Indicated] Stat Lab 02/21/25 22:25 Completed Urine Culture Stat Lab 02/21/25 22:25 Received Aspirin Chew Med 02/21/25 20:18 Discontinued 324 mg PO X1 ONE HYDROcodone*/APAP 5/325 [[place] 5/325] Med 02/22/25 00:09 Discontinued 1 tab PO X1 ONE Ketorolac Inj [Toradol Inj] Med 02/21/25 22:58 Discontinued 15 mg IVP X1 ONE LORazepam [Ativan Inj] Med 02/22/25 01:04 Discontinued 2 mg IVP X1 ONE Labetalol IV [Trandate IV] Med 02/22/25 03:05 Discontinued 20 mg IVP X1 ONE Lisinopril [Prinivil] Med 02/22/25 04:29 Discontinued 20 mg PO X1 ONE Morphine Inj Med 02/21/25 20:58 Discontinued 5 mg IVP X1 ONE Morphine Inj Med 02/22/25 01:11 Discontinued 5 mg IVP X1 ONE NIFEdipine [Procardia] Med 02/22/25 04:27 Discontinued 10 mg PO X1 ONE Nitroglycerin [Nitrostat 1/150] Med 02/21/25 20:18 Discontinued 0.4 mg SL Q5MIN PRN Ondansetron Inj [Zofran Inj] Med 02/21/25 20:58 Discontinued 4 mg IV X1 ONE Ondansetron Inj [Zofran Inj] Med 02/22/25 01:11 Discontinued 4 mg IV X1 ONE Ringers Lactated 1000 ml [Lactated Ringers] 1,000 ml Med 02/22/25 02:15 Discontinued IV 999 mls/hr Sodium Chloride 0.9% 1000 ml [Ns] 1,000 ml Med 02/22/25 01:05 Discontinued IV 999 mls/hr hydrALAZINE INJ [Apresoline Inj] Med 02/21/25 20:51 Discontinued 10 mg IV X1 ONE hydrALAZINE INJ [Apresoline Inj] Med 02/22/25 00:06 Discontinued 10 mg IV X1 ONE Vital Signs Vital signs: Vital Signs Temperature 98.1 F 02/21/25 19:18 Pulse Rate 71 02/21/25 19:18 Respiratory Rate 12 02/21/25 19:18 Blood Pressure 201/107 H 02/21/25 19:18 Pulse Oximetry (%) 100 02/21/25 19:18 Oxygen Delivery Method Room Air 02/21/25 19:18 Shortness of Breath / Dyspnea [facility] Narrative MDM Narrative:: Scribe Attestation: Amarilys Wang am scribing for and in the presence of Dr. Rosales. Provider Notation: Although this document has been carefully reviewed, there may still be some phonetic and other typographical errors. These errors are purely grammatical due to imperfections in the software program and should not be construed in any way to compromise the substance of the patient's medical care during this visit. Patient data External records reviewed:: [facility] previous records (Prior ED records from 01/13/25 reviewed. Patient was last seen for fracture of tooth.) and EMS form Clinical information provided by:: patient and EMS Social determinants that could affect healthcare access:: none Patient has the following chronic illnesses:: Hypertension How is presenting disease/condition affected by chronic disease/condition?: exacerbated by Evaluation data The following diagnostics were reviewed and interpreted by me:: lab results, radiology exam(s) and EKG tracing(s) (EKG manual reading, my interpretation: sinus rhythm, rate: 66 bpm, Q-wave and T wave aversions in v II, no ST elevation, no acute ischemic changes, interpreted as normal.) Lab and/or radiology exams considered but not ordered:: None Interpretation Summary: RADIOLOGY CHEST X-RAY Chest x-ray is ordered for determining etiology of chest pain. I have personally reviewed the radiology data and agree with the radiologist's interpretation below: Patient: BENJI RICHARDS Record#: [id number] Birthdate: 1985 Age/Sex: 39 / F Location: [facility] Attending Dr: Ordering Physician: Nadia Rosales MD Date of Service: 02/21/25 Procedure(s): XR chest 1V portable Accession Number(s): [id number] cc: Gautam Goodwin MD; Cristiano Barney MD; Nadia Rosales MD~ Examination: AP chest single view TECHNIQUE: AP portable upright chest single view Exam date and time: February 21, 2025, 2107 hours Comparison April 22, 2021 INDICATIONS: Chest pain today. FINDINGS: Minor prominence left ventricle Suspicious for early pneumonia left base Intact osseous structures IMPRESSION: Suspicious for early pneumonia left base Dictated By: Cristiano Barney MD Signed By: <Electronically signed by Cristiano Barney MD in OV> 02/21/252118 Medications / Prescriptions Medications or Prescriptions considered but not ordered:: None Medication administrations:: Medication Administration History Discontinued Medications Hydrocodone Bitart/Acetaminophen (Hydrocodone/Apap 5/325 Tablet) 1 tab PO X1 ONE Stop: 02/22/25 00:10 Last Admin: 02/22/25 00:14 Dose: 1 tab Documented By: BD Aspirin (Aspirin 81 Mg Chew) 324 mg PO X1 ONE Stop: 02/21/25 20:19 Last Admin: 02/21/25 20:24 Dose: 324 mg Documented By: BD Hydralazine HCl (Hydralazine Inj 20 Mg/Ml Vial) 10 mg IV X1 ONE Stop: 02/21/25 20:52 Last Admin: 02/21/25 21:05 Dose: 10 mg Documented By: AC Hydralazine HCl (Hydralazine Inj 20 Mg/Ml Vial) 10 mg IV X1 ONE Stop: 02/22/25 00:07 Last Admin: 02/22/25 00:10 Dose: 10 mg Documented By: BD Sodium Chloride (Ns) 1,000 mls @ 999 mls/hr IV .Q1H1M ONE Stop: 02/22/25 02:05 Last Infusion: 02/22/25 02:25 Dose: Infused Documented By: Admin: 02/22/25 01:13 Dose: 999 mls/hr Documented By: BD Lactated Ringer's (Lactated Ringers) 1,000 mls @ 999 mls/hr IV .Q1H1M ONE Stop: 02/22/25 03:15 Last Infusion: 02/22/25 03:05 Dose: Infused Documented By: Admin: 02/22/25 02:25 Dose: 999 mls/hr Documented By: BD Ketorolac Tromethamine (Ketorolac Inj 30 Mg/Ml Vial) 15 mg IVP X1 ONE Stop: 02/21/25 22:59 Last Admin: 02/21/25 23:15 Dose: 15 mg Documented By: BD Labetalol HCl (Labetalol Inj 5 Mg/Ml Vial 20 Ml) 20 mg IVP X1 ONE Stop: 02/22/25 03:06 Last Admin: 02/22/25 03:08 Dose: 20 mg Documented By: BD Lisinopril (Lisinopril 20 Mg Tablet) 20 mg PO X1 ONE Stop: 02/22/25 04:30 Last Admin: 02/22/25 04:37 Dose: 20 mg Documented By: CB Lorazepam (Lorazepam 2 Mg/Ml Vial) 2 mg IVP X1 ONE Stop: 02/22/25 01:05 Last Admin: 02/22/25 02:15 Dose: 2 mg Documented By: BD Morphine Sulfate (Morphine Sulf Inj 10 Mg/Ml Vial) 5 mg IVP X1 ONE Stop: 02/21/25 20:59 Last Admin: 02/21/25 21:04 Dose: 5 mg Documented By: AC Morphine Sulfate (Morphine Sulf Inj 10 Mg/Ml Vial) 5 mg IVP X1 ONE Stop: 02/22/25 01:12 Last Admin: 02/22/25 01:20 Dose: 5 mg Documented By: BD Nifedipine (Nifedipine 10 Mg Capsule) 10 mg PO X1 ONE Stop: 02/22/25 04:28 Last Admin: 02/22/25 04:37 Dose: 10 mg Documented By: CB Nitroglycerin (Nitroglycerin 0.4 Mg Subl Btl #25) 0.4 mg SL Q5MIN PRN PRN Reason: CHEST PAIN Stop: 03/23/25 20:17 Last Admin: 02/21/25 20:47 Dose: 0.4 mg Documented By: Admin: 02/21/25 20:37 Dose: 0.4 mg Documented By: Admin: 02/21/25 20:28 Dose: 0.4 mg Documented By: BD Ondansetron HCl (Ondansetron Inj 2 Mg/Ml Inj 2 Ml) 4 mg IV X1 ONE Stop: 02/21/25 20:59 Last Admin: 02/21/25 21:05 Dose: 4 mg Documented By: AC Ondansetron HCl (Ondansetron Inj 2 Mg/Ml Inj 2 Ml) 4 mg IV X1 ONE Stop: 02/22/25 01:12 Last Admin: 02/22/25 01:19 Dose: 4 mg Documented By: BD See above if any Consultations Consultation(s) initiated? (list below): No Diagnosis Shortness of Breath Differential Diagnosis: other (ACS vs Viral syndrome vs PNA) Most likely diagnosis given after review of the tests above:: Generalized body aches, Hypertensive urgency Admission Indicated Admission indicated?: not indicated Admission Request Was there a request for admission?: No Disposition Plan Disposition Plan: Discharge Discharge Attestation Discharge Attestation: The patient and all family members were given an opportunity to ask questions and understood the discharge instructions. Discharge instructions specifically effects, indications for sooner follow up or return to the emergency department, and the expected course of current diagnosis. Patient condition: Stable Discharge Plan Plan Patient Disposition: HOME (Self Care) Prescriptions/Referrals Prescriptions/Med Rec: No Action clindamycin HCl 300 mg capsule 300 mg PO TID Qty: 21 0RF clindamycin HCl 300 mg capsule 300 mg PO TID Qty: 21 0RF clindamycin HCl 300 mg capsule 300 mg PO TID Qty: 21 0RF ibuprofen 800 mg tablet 800 mg PO TID PRN (Reason: pain) Qty: 30 0RF nifedipine [Procardia XL] 60 mg tablet extended release 24hr 60 mg PO QDAY Qty: 30 0RF ibuprofen 600 mg tablet 600 mg PO Q6H PRN (Reason: pain) Qty: 30 0RF acetaminophen 500 mg tablet 1,000 mg PO Q6H PRN (Reason: pain) Qty: 30 0RF lidocaine HCl [Lidocaine Viscous] 2 % solution 15 ml PO .PO Qty: 100 0RF lidocaine HCl [Lidocaine Viscous] 2 % solution See Rx Instructions .ROUTE .COMPLEX Qty: 60 0RF Rx Instructions: Apply topically as needed for pain. lidocaine HCl [Lidocaine Viscous] 2 % solution See Rx Instructions .ROUTE .COMPLEX Qty: 100 0RF Rx Instructions: Swish and swallow 5 mL every 4-6 hours as needed for mouth pain lisinopril 10 mg tablet 10 mg PO QDAY Qty: 90 0RF Referrals: Gautam Goodwin MD [Primary Care Provider] - In 1 week Problem List Clinical Impression: Generalized body aches, Hypertensive urgency Patient/Caregiver Discharge Instructions Education Materials: ED High Blood Pressure ... Print Language: Cook Islander Stand Alone Forms: Reva Award Info., Patient Portal Info Letter
[2025-02-21] MEDS: ASPIRIN 81 MG CHEW 324 MG PO (20:24)
[2025-02-21] MEDS: NITROGLYCERIN 0.4 MG SUBL BTL #25 SL ×3 (20:28→20:47)
[2025-02-21 20:48] LABS: Basophils # (Auto) 0.1 Thou/mm3 (0.0-0.2); Basophils % (Auto) 1 % (0-2.5); Eosinophils # (Auto) 0.1 Thou/mm3 (0.0-0.5); Eosinophils % (Auto) 1 % (0-10); Hemoglobin 13.4 g/dL (12.0-16.0); Immature Granulocytes % (Auto) 0 % (0-0); Immature Granulocytes Auto 0.06 Thou/mm3 (0.00-0.00); Lymphocytes # (Auto) 1.8 Thou/mm3 (1.0-4.8); Lymphocytes % (Auto) 12 % (10-50); Mean Corpuscular HGB Conc 34.4 g/dl (31.0-37.0); Mean Corpuscular Volume 90 fL (80-100); Monocytes # (Auto) 0.7 Thou/mm3 (0.0-0.8); Monocytes % (Auto) 5 % (0-12); Neutrophils # (Auto) 11.5 Thou/mm3 (1.8-7.7); Neutrophils % (Auto) 81 % (37-80); Nucleated Red Blood Cell % 0 /100 WBC (0); Platelet Count 204 Thou/mm3 (140-440); Red Blood Count 4.32 Miln/mm3 (4.00-5.20); White Blood Count 14.2 Thou/mm3 (3.6-11.0)
[2025-02-21] MEDS: MORPHINE SULF INJ 10 MG/ML VIAL 5 MG IVP (21:04)
[2025-02-21] MEDS: ONDANSETRON INJ 2 MG/ML INJ 2 ML 4 MG IV (21:05)
[2025-02-21] MEDS: hydrALAZINE INJ 20 MG/ML VIAL 10 MG IV (21:05)
[2025-02-21 21:07] LABS: Alanine Aminotransferase 10 U/L (10-49); Albumin, Serum 4.7 gm/dL (3.5-5.0); Albumin/Globulin Ratio 1.6 (1.2-2.2); Alcohol, Blood Medical < 3.0 mg/dL (0-10.0); Alkaline Phosphatase 87 U/L (46-116); Anion Gap 7 (7-16); Aspartate Amino Transferase 18 U/L (0-34); BUN/Creatinine Ratio 19 Ratio (12-20); Bilirubin,Total 0.9 mg/dL (0.3-1.2); Blood Urea Nitrogen 19 mg/dL (9-23); Calcium 9.4 mg/dL (8.3-10.6); Calcium (Corrected) 9.4 mg/dL (8.5-10.1); Carbon Dioxide 23.2 mMol/L (20.0-31.0); Chloride 106 mMol/L (98-107); Estimated Creatinine Clearance 86.8 mL/min (>60); Globulin 2.9 gm/dL (2.3-3.5); Glucose 105 mg/dL (74-106); Lipase 43 U/L (12-53); Magnesium 1.8 mg/dL (1.6-2.6); Osmolality,Calculated 274 (275-295); Potassium 3.7 mMol/L (3.4-5.1); Sodium 136 mMol/L (136-145); Total Protein 7.6 gm/dL (5.7-8.2); eGFR > 60 See Note
[2025-02-21 21:10] LABS: Troponin I 0.083 ng/mL (0.0-0.045)
[2025-02-21 21:15] LABS: B-Type Natriuretic Peptide 73 pg/mL (0-100)
[2025-02-21 21:24] LABS: Partial Thromboplastin Time 26.9 Seconds (22.0-36.0)
[2025-02-21 22:32] LABS: Collection Type, Urine Clean Catch
[2025-02-21 23:07] LABS: Bilirubin,Urine Negative (Negative); Blood,Urine 3+ (Negative); Clarity,Urine Turbid (Clear/Hazy); Color,Urine Brown (Lt Yel-Yel); Glucose, Urine Negative (Negative); Ketones,Urine Trace (Negative); Leukocyte Esterase,Urine Positive (Negative); Nitrite,Urine Negative (Negative); PH,Urine 5.5 (5.0-7.0); Protein,Urine 1+ (Neg - Trace); RBC,Urine 2412 /hpf (0-3); Specific Gravity,Urine 1.034 (1.001-1.035); Squamous Epithelial Cell,Urine 10 /hpf (0-5); Urobilinogen,Urine Negative mg/dL (0.0-1.0); WBC,Urine 110 /hpf (0-5)
[2025-02-21 23:08] LABS: Culture Indicated,Urine Yes
[2025-02-21] MEDS: KETOROLAC INJ 30 MG/ML VIAL 15 MG IVP (23:15)
[2025-02-21 23:54] LABS: Amphetamine/Methamp Scrn,U Negative (Negative); Barbiturate Screen,Urine Negative (Negative); Benzodiazepines Screen,Urine Negative (Negative); Benzoylecgonine Screen, Ur Negative (Negative); Fentanyl Screen,Urine Negative (Negative); Opiate Screen,Urine Positive (Negative); THC Screen,Urine Negative (Negative)
[2025-02-22] VITALS (7 sets, daily range): BP systolic 171–216; BP diastolic 111–124; PULSE 65–83; RESP 16–25; TEMP 36.9–37.2; O2SAT 98–99
[2025-02-22] MEDS: hydrALAZINE INJ 20 MG/ML VIAL 10 MG IV (00:10)
[2025-02-22] MEDS: HYDROcodone/APAP 5/325 TABLET 1 TAB PO (00:14)
[2025-02-22 00:16] LABS: Troponin I 0.081 ng/mL (0.0-0.045)
[2025-02-22] MEDS: SODIUM CHLORIDE 0.9% 1000 ML 1,000 ML 999 ML IV (01:13)
[2025-02-22 01:19] LABS: Lactate (Lactic Acid) 1.1 mMol/L (0.4-2.0)
[2025-02-22] MEDS: ONDANSETRON INJ 2 MG/ML INJ 2 ML 4 MG IV (01:19)
[2025-02-22] MEDS: MORPHINE SULF INJ 10 MG/ML VIAL 5 MG IVP (01:20)
[2025-02-22 01:37] LABS: HCG,Qualitative Serum Negative
[2025-02-22 01:47] LABS: Procalcitonin 0.04 ng/ml (0.0-0.49)
[2025-02-22] MEDS: LORazepam 2 MG/ML VIAL IVP (02:15)
[2025-02-22] MEDS: RINGERS LACTATED 1000 ML 1,000 ML 999 ML IV (02:25)
[2025-02-22] MEDS: LABETALOL INJ 5 MG/ML VIAL 20 ML 20 MG IVP (03:08)
[2025-02-22 03:20] LABS: Thyroid Stimulating Hormone 1.09 uIU/mL (0.55-4.78)
[2025-02-22] MEDS: Lisinopril 20 MG TABLET PO (04:37)
[2025-02-22] MEDS: NIFEdipine 10 MG CAPSULE PO (04:37)
== END 2025-02-22 05:13 | disposition home or self-care (01) ==
PROVIDERS: Emergency Provider Emergency Medicine; PCP Family Medicine
DX: I16.0 Hypertensive urgency (principal); R52 Pain, unspecified; I10 Essential (primary) hypertension
CPT/HCPCS: 36415; 71045; 80053; 80307; 80320; 81001; 81025; 83605; 83690; 83735; 83880; 84145; 84443; 84484; 84703; 85025; 85610; 85730; 87086; 87400; 87811; 93005; 96360; 96361; 99284; J0360; J1885; J2060; J2270; J2405; J3490; J7030; J7120; A9270; G0480; J1920